=== PATIENT | female | born 1995 | race Caucasian/White ===

== ENCOUNTER 2019-06-14 08:08 | Emergency (ER) | payer OTHER ==
[~2019-06-14] VITALS: Ht 157.5 cm; Wt 70.8 kg
[~2019-06-14 08:08] MED LIST: PRED-285 PO; [UNRECOGNIZED DRUG - CODE] PO
[2019-06-14 08:10] VITALS: BP 133/73
[2019-06-14] MEDS ORDERED: NACL 0.9% 1,000 ML IV SCH (08:30)
[2019-06-14] MEDS ORDERED: ONDANSETRON 4 MG/2 ML VIAL IVP ONE ×2 (08:30→11:20)
[2019-06-14] MEDS ORDERED: KETOROLAC 30 MG/ML VIAL IVP ONE (08:30)
[2019-06-14 09:15] LABS: BASOPHILS % (AUTO) 0.3 % (0.0-2.0); HEMATOCRIT 40.4 % (36-48); HEMOGLOBIN 13.5 g/dL (12.0-16.0); LYMPHOCYTES # (AUTO) 0.4 K/uL (2.5-16.5); LYMPHOCYTES % (AUTO) 3.2 % (20.5-51.1); MEAN CORPUSCULAR HEMOGLOBIN 30 pg (27-31); MEAN CORPUSCULAR HGB CONC 34 g/dL (33-37); MEAN CORPUSCULAR VOLUME 90.9 fL (80-94); MONOCYTES # (AUTO) 0.6 K/uL (0.8-1.0); MONOCYTES % (AUTO) 4.4 % (1.7-9.3); NEUTROPHILS # (AUTO) 12.8 K/uL (1.8-7.7); NEUTROPHILS % (AUTO) 92.1 % (42.2-75.2); PLATELET COUNT (AUTO) 176 K/uL (140-450); RED BLOOD CELL COUNT(AUTO) 4.44 MIL/uL (4.20-5.40); RED CELL DISTRIBUTION WIDTH 13.6 % (11.6-13.7); WHITE BLOOD COUNT (AUTO) 13.9 K/uL (4.8-10.8)
[2019-06-14 09:20] LABS: APPEARANCE,URINE CLEAR (CLEAR); BILIRUBIN,URINE NEGATIVE (NEGATIVE); BLOOD, URINE 1+ (NEGATIVE); COLOR,URINE YELLOW (YELLOW); LEUKOCYTE ESTERASE ,URINE NEGATIVE (NEGATIVE); NITRITE, URINE NEGATIVE (NEGATIVE); PH,URINE 5.5 (5.0-9.0); UGLUCOSE NEGATIVE (NEGATIVE)
[2019-06-14 09:45] LABS: ALBUMIN 3.9 g/dL (3.4-5.0); ANION GAP 15.3 (8-16); CARBON DIOXIDE 26.1 mmol/L (21-32); CREATININE 0.9 mg/dL (0.6-1.3); POTASSIUM 3.4 mmol/L (3.5-5.1); TOTAL BILIRUBIN 0.7 mg/dL (0.0-1.0)
[2019-06-14 10:04] LABS: URINE AMORPHOUS URATE 1+ /HPF (None Seen)
[2019-06-14] MEDS ORDERED: cefTRIAXone 1,000 MG VIAL ONE (12:36)
[2019-06-14] MEDS ORDERED: IBUPROFEN 600 MG TAB PO ONE (12:45)
[2019-06-14] MEDS ORDERED: ACETAMINOPHEN EXTRA STRENGTH 500 MG TAB PO ONE (12:45)
[2019-06-14] MEDS ORDERED: NACL 0.9% 1,000 ML IV ONE (12:55)
[2019-06-14 15:24] VITALS: BP 129/66
== END 2019-06-14 15:24 | disposition home or self-care (01) ==
LOC: MED 08:08
DX: R10.31 Right lower quadrant pain (principal); R53.1 Weakness
CPT/HCPCS: 36415; 74177; 76705; 76830; 76856; 80053; 81001; 81025; 83605; 85025; 87040; 87086; 87186; 93976; 96365; 96375; 96376; 99285; J0696; J1885; J2405; J7030; Q0092; Q9967; 81002